=== PATIENT | male | born 1960 | race Caucasian/White ===

== ENCOUNTER → 2020-03-26 | Outpatient (CLI) | payer BC, OTHER | END | disposition home or self-care (01) | LOC: STAR 08:24 | PROVIDERS: ATTEND Orthopaedic Surgery Foot and Ankle Surgery | DX: Z01.818 Encounter for other preprocedural examination (principal); M12.571 Traumatic arthropathy, right ankle and foot; M25.571 Pain in right ankle and joints of right foot; Z20.828 Contact with and (suspected) exposure to other viral communicable diseases | CPT/HCPCS: 87635; 93005 ==

== ENCOUNTER 2020-03-30 04:58 | Day surgery (SDC) | payer BC, OTHER ==
[~2020-03-30] VITALS: Ht 175.3 cm; Wt 96.7 kg
[2020-03-30 05:55] VITALS: BP 129/87
[2020-03-30] MEDS ORDERED: CHLORHEXIDINE 15 ML UDC MM ONE (06:00)
[2020-03-30] MEDS ORDERED: LACTATED RINGERS 1,000 ML IV SCH (06:00)
[2020-03-30] MEDS ORDERED: MIDAZOLAM 1 MG/ML, 2ML ONE (06:44)
[2020-03-30] MEDS ORDERED: FENTANYL PF 250 MCG/5ML ONE (06:45)
[2020-03-30] MEDS ORDERED: DEXAMETHASONE 4 MG/ML, 1ML ONE (07:15)
[2020-03-30] MEDS ORDERED: TRANEXAMIC ACID 100 MG/ML, 10ML ONE (07:35)
[2020-03-30] MEDS ORDERED: ALBUTEROL SULFATE 2.5 MG/3 ML NPPB PRN (08:00)
[2020-03-30] MEDS ORDERED: OXYcodone 5 MG/5 ML ORAL.SOL UDC PO PRN (08:00)
[2020-03-30] MEDS ORDERED: HYDROmorphone 1 MG/ML, 1ML INJ IVPush PRN (08:00)
[2020-03-30] MEDS ORDERED: ACETAMINOPHEN 325 MG TABLET PO PRN (08:00)
[2020-03-30] MEDS ORDERED: PROMETHAZINE 25 MG/ML, 1ML IVPush PRN (08:00)
[2020-03-30] MEDS ORDERED: LABETALOL 5MG/ML, 20ML IV PRN (08:00)
[2020-03-30] MEDS ORDERED: LORazepam 2 MG/ML, 1ML IVPush PRN (08:00)
[2020-03-30] MEDS ORDERED: MEPERIDINE/PF 25MG/0.5ML IVPush PRN (08:00)
[2020-03-30] MEDS ORDERED: ROPIvacaine/PF 0.2%, 100ML 550 ML (check volume) INJ ONE (08:00)
[2020-03-30] MEDS ORDERED: FENTANYL PF 100 MCG/2ML IV PRN (08:00)
[2020-03-30] MEDS ORDERED: BUPIVACAINE/PF 0.25% ONE (08:33)
[2020-03-30] MEDS ORDERED: LIDOCAINE-MPF 2% ,5ML ONE (08:33)
[2020-03-30] MEDS ORDERED: BUPIVACAINE/PF 0.5% ONE (08:33)
[2020-03-30] MEDS ORDERED: CEFAZOLIN 1,000 MG ONE (09:08)
[2020-03-30] MEDS ORDERED: PROPOFOL 10 MG/ML, 20ML ONE (09:08)
[2020-03-30] MEDS ORDERED: ONDANSETRON 2MG/ML, 2ML ONE (09:08)
[2020-03-30] MEDS ORDERED: PROMETHAZINE 25 MG/ML, 1ML ONE (09:53)
== END 2020-03-30 12:20 | disposition home or self-care (01) ==
LOC: OUT 04:58 → EDSTATUS 08:30 → OUT 12:20
PROVIDERS: ATTEND Orthopaedic Surgery Foot and Ankle Surgery
DX: M19.171 Post-traumatic osteoarthritis, right ankle and foot (principal); M25.771 Osteophyte, right ankle; M16.11 Unilateral primary osteoarthritis, right hip; M25.551 Pain in right hip; E78.5 Hyperlipidemia, unspecified; K21.9 Gastro-esophageal reflux disease without esophagitis; J45.909 Unspecified asthma, uncomplicated; Z88.0 Allergy status to penicillin; Z79.899 Other long term (current) drug therapy; Z72.89 Other problems related to lifestyle; Z98.890 Other specified postprocedural states; Z96.641 Presence of right artificial hip joint; Z83.3 Family history of diabetes mellitus; Z82.49 Family history of ischemic heart disease and other diseases of the circulatory system
CPT/HCPCS: 27687; 27702; 64445; 64447; 73600; C1713; C1776; J0690; J1100; J2250; J2405; J2550; J2704; J3010; J7120; 76000